=== PATIENT | female | born 1950 | race Two or more races ===

== ENCOUNTER → 2024-02-27 | Outpatient (CLI) | payer MEDICARE, MEDICAID, SELFPAY ==
--- NOTE | 2024-02-27 08:30 | XR_ITS ---
Examination: Abdomen sonogram, complete Date and time of exam: February 27, 2024 0844 hours INDICATIONS: Cirrhosis diagnosis 20 years ago. Technique: Multiple real-time grayscale transabdominal sonographic images of the abdomen have been obtained. Findings: Multiple gallstones Normal gallbladder wall Normal common bile duct 0.4 cm Pancreatic head 2.7 cm Aorta not enlarged Liver 16.5 cm nodular contour fatty infiltration no focal liver lesions Normal hepatopedal portal venous flow Patent IVC Right kidney 11.4 x 5.1 x 5.9 cm cortex 1.1 cm Left kidney 10.8 x 5.5 x 4.6 cm renal cortex 1.7 cm Moderate renal parenchymal scar formation No hydronephrosis 14.5 cm splenic dimension with portosystemic collateral vessels IMPRESSION: Cholelithiasis Hepatosplenomegaly Cirrhosis, no focal liver lesions
== END | disposition home or self-care (01) ==
LOC: CDIM 08:19
PROVIDERS: Referring Provider Family Medicine; Visit Provider Family Medicine
DX: K80.20 Calculus of gallbladder without cholecystitis without obstruction (principal); R16.2 Hepatomegaly with splenomegaly, not elsewhere classified
CPT/HCPCS: 76700

== ENCOUNTER → 2024-03-28 | Outpatient (CLI) | payer MEDICARE, MEDICAID, SELFPAY ==
--- NOTE | 2024-03-28 07:00 | XR_ITS ---
Exam: MRI knee without contrast, right complete Date and time of exam: April 07, 2024 at 0706 hrs. Indications: Patient fell November 2023 with injury to the knee followed by anterior knee pain weakness instability Technique: Multiple axial, coronal, and sagittal sections on the knee have been obtained. T2-Weighted sagittal, fat-suppressed images, TR 3,500, TE 62, T2 weighted coronal fat-saturated images, TR 3,500, TE 62 Proton density sagittal sections, TR 1800, TE 31. T-1 weighted coronal images, TR 524, TE 13.0 Findings: Medial meniscus anterior horn intact. Medial meniscus, body oblique linear tear communicating inferior articular surface. Posterior horn medial meniscus horizontal linear tear communicating inferior articular surface near the inner margin. Lateral meniscus anterior horn replaced by isointense signal Lateral meniscus, body is replaced by isointense signal Posterior horn lateral meniscus is replaced by isointense signal Anterior cruciate ligament moderate sprain Posterior cruciate ligament appears intact. Knee effusion is moderate. Suprapatellar joint like Quadriceps and patellar tendons appear intact. There is no evidence of tendinosis. Inflammatory change or fracture of Hoffa's fat pad is not seen. Medial patellar facet demonstrates moderate thinning. Lateral patellar facet cartilage demonstrates moderate thinning. Trochlear cartilage demonstrates moderate thinning. Marrow signal abnormal, 26 mm focus of osteochondritis dissecans posterior lateral femoral condyle. Medial collateral ligament appears intact. No meniscocapsular separation is seen. Illiotibial band and fibular collateral ligament are intact. Biceps femoris tendons appear intact. Medial femoral condylar articular cartilage demonstrates moderate thinning. Lateral femoral condylar articular cartilage demonstratesmoderate thinning. Tibial plateau cartilage demonstrates moderate thinning. 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
== END | disposition home or self-care (01) ==
PROVIDERS: PCP Physician Assistant; Referring Provider Physician Assistant; Visit Provider Physician Assistant
DX: S83.206A Unspecified tear of unspecified meniscus, current injury, right knee, initial encounter (principal); S83.511A Sprain of anterior cruciate ligament of right knee, initial encounter; X58.XXXA Exposure to other specified factors, initial encounter; M93.261 Osteochondritis dissecans, right knee
CPT/HCPCS: 73721

== ENCOUNTER → 2024-04-28 | Outpatient (CLI) | payer MEDICARE, MEDICAID, SELFPAY ==
--- NOTE | 2024-04-28 | XR_ITS ---
Examination: Bilateral knees 2 views Right lateral knee left lateral knee 2 views Bilateral axial knees single view Technique: Bilateral AP knees standing single view, bilateral PA knees standing single view flexion Standing right lateral knee left lateral knee 2 views Bilateral axial knees single view total 5 views Exam date and time: April 28, 2024 1302 hrs. Indications: Right knee pain after falling November 2023 Findings: Moderate to advanced narrowing lateral joint space right knee Mild osteoarthritis patellofemoral and medial joint spaces Moderate narrowing medial joint space left knee Mild osteoarthritis patellofemoral joint and lateral joint space Impression: Moderate to advanced narrowing lateral joint space right knee Moderate narrowing medial joint space left knee
== END | disposition home or self-care (01) ==
LOC: CDIM 12:04
PROVIDERS: Referring Provider Orthopaedic Surgery Adult Reconstructive Orthopaedic Surgery; Visit Provider Orthopaedic Surgery Adult Reconstructive Orthopaedic Surgery
DX: M25.862 Other specified joint disorders, left knee (principal); M25.861 Other specified joint disorders, right knee
CPT/HCPCS: 73564

== ENCOUNTER 2024-05-27 08:17 | Outpatient (AMB) | payer MEDICARE, MEDICAID, SELFPAY ==
--- NOTE | 2024-05-27 08:26 | ORTHONT_ITS ---
Vital signs 05/27/24 08:27 Height 1.63 m Height Method Stated Weight 81.873 kg Weight Measurement Method Standing Scale BMI 30.9 BP 108/68 Blood Pressure Source Automatic Cuff Blood Pressure Location Right Upper Arm Position Sitting Respiration 18 Pulse 70 Pulse Source Monitor Temp 97.6 F Temp Source Temporal Artery Scan Pulse Oximetry (%) 98 Oxygen Delivery Method Room Air Med/Allergies Allergies & Medications Allergies No Known Allergies Allergy (Unknown, Uncoded 05/27/24 08:27) Medication Reconciliation Propranolol Hcl * (INDERAL *) 10 mg PO TID #0 tabs 08/24/16 [History Confirmed 05/27/24] azathioprine 50 mg tablet (Imuran) 50 mg PO QDAY #0 tabs 08/24/16 [History Confirmed 05/27/24] multivitamin,[id number] (Complete Multivitamin tablet) 1 tab PO #0 tabs 08/24/16 [History Confirmed 05/27/24] spironolactone 25 mg tablet (Aldactone) 25 mg PO TID #0 tabs 08/24/16 [History Confirmed 05/27/24] lactulose 10 gram/15 mL oral solution 10 g PO QDAY 05/27/24 [History Confirmed 05/27/24] meloxicam 7.5 mg tablet 7.5 mg PO QDAY #45 tabs 05/27/24 [Rx] Exam Exam Breathing is nonlabored. Patient has a normal mood and affect. Bilateral extremities were evaluated and demonstrates sensation intact to light touch. Palpable pedal pulses are present. No significant edema is present. Bilateral hips were examined. The patient has no pain with log roll of the hips. Internal rotation to 30 degrees and external rotation to 30 degrees is painless. Negative FADIR. Left knee was examined today. The left knee is in reasonable alignment. Range of motion from 0-120 degrees. Knee is stable to varus and valgus as well as AP translation with <5mm. Patient has a negative McMurrays. There is no pain with patellofemoral compression and no crepitus noted. The knee is nontender to palpation. The right knee was also examined. The right knee is in valgus alignment. Range of motion from 0-115 degrees. Knee is stable to varus and valgus as well as AP translation with <5mm. Patient has a negative McMurrays. There is no pain with patellofemoral compression and no crepitus noted. The knee is tender to palpation Medially and laterally Bilateral knee x-rays demonstrate joint space narrowing laterally of advanced severity. Left knee x-rays demonstrate mild arthritis Assessment and Plan Problem List (1) Arthritis of knee, right: Status: Acute Plan: Patient is a pleasant 74-year-old female with moderate arthritis of the right knee with 6 months of right knee pain. He has not tried conservative treatment. We discussed the natural history of arthritis in great detail today. We will start with an anti-inflammatory Advanced Care Planning Discussion Advance care planning discussed with:: patient and child Office Procedures GNS Level of Care Nursing/Assessment Patient Status: Established Patient Nursing Assessment/Reassesment: Medication Reconciliation, Update PMH in EMR and Vital Signs Coordination of Care: Complex Care and Chronic Disease 1-5, Education Complex Pt/Fam, Consent,records obtained, informed consent, Results/Orders obtained and Staff clarify orders Special Needs: Language special needs Established Patient Charge Established Patient Point Assignment: 95 Established Patient Point Charge: EP Level 3 (80-115) MA Intake Visit Data Collection New Patient or Established: Established Patient (seen at [facility] within 3 years) Reason for Visit:: RIGHT KNEE PAIN Seen by Clinical Staff ONLY (RN/MA): No Verbal consent obtained for Telemed visit?: No Lawn Caretaker Required: Yes PCP or OBGYN visit in last 3 months: Yes Hx Now: No Do You Feel Safe at Home: Yes Authorities Contacted: N/A Questionairres Past Medical History Past Medical History Have you ever been diagnosed with any of the following: Respiratory Problems Smoking: No Smoking Cessation Counseling: No Smoking Exposure: No Tobacco Use: No Clubbing: No Stomache/Intestinal Problems Cirrhosis: Yes Subjective Visit Visit for: new patient and knee Immunization / Flu Flu Vaccine in the Last 12 Months: No Flu Vaccine Exclusion Criteria: No Exclusion Criteria History of Present Illness Chief complaint: right knee pain Date of injury / onset of symptoms: LAST NOVEMBER Patient is a pleasant 74-year-old female with right knee pain that has been ongoing for 4 months. The pain is starting to recur but is not affecting her quality life or happiness. She is able to function pretty well. She has not had any injections or taking anti-inflammatories. She has tried physical therapy in the past Personal History Occupation: RETIRED Red flag PMH: BMI and none BMI Counceling provided: Yes Pain Pain level (0-10): 1 Pain duration: WITH ACTIVITY Pain location: anterior Pain quality: other (specify) (BOTHERSOME) Pain timing: increases with activity Associated signs & symptoms: numbness and weakness Ambulatory data Ambulatory device: none Treatments Improvement with previous injections: No Number of Physical Therapy sessions: 5 Improvement with PT: Yes Improvement with NSAIDS: no Review of Systems Review of Systems: All systems negative unless otherwise noted in HPI.
[2024-05-27 08:27] VITALS: BP 108/68; PULSE 70; RESP 18; TEMP 36.4; O2SAT 98; BMI 30.9
== END 2024-05-27 08:35 | disposition home or self-care (01) ==
LOC: HODSRG 08:17
PROVIDERS: PCP Physician Assistant; Referring Provider Physician Assistant; Supervising Provider Orthopaedic Surgery Adult Reconstructive Orthopaedic Surgery; Visit Provider Orthopaedic Surgery Adult Reconstructive Orthopaedic Surgery
DX: M17.11 Unilateral primary osteoarthritis, right knee (principal); M25.561 Pain in right knee
CPT/HCPCS: 99213; G0463

== ENCOUNTER 2024-07-01 07:57 | Outpatient (AMB) | payer MEDICARE, MEDICAID, SELFPAY ==
[2024-07-01 08:10] VITALS: BP 122/78; PULSE 66; RESP 18; TEMP 36.4; O2SAT 96; BMI 31.4
--- NOTE | 2024-07-01 08:10 | ORTHONT_ITS ---
Vital signs 07/01/24 08:10 Height 1.63 m Height Method Stated Weight 83.603 kg Weight Measurement Method Standing Scale BMI 31.4 BP 122/78 Blood Pressure Source Automatic Cuff Blood Pressure Location Right Upper Arm Position Sitting Respiration 18 Pulse 66 Pulse Source Monitor Temp 97.6 F Temp Source Temporal Artery Scan Pulse Oximetry (%) 96 Oxygen Delivery Method Room Air Med/Allergies Allergies & Medications Allergies No Known Allergies Allergy (Unknown, Uncoded 07/01/24 08:11) Medication Reconciliation Propranolol Hcl * (INDERAL *) 10 mg PO TID #0 tabs 08/24/16 [History Confirmed 07/01/24] azathioprine 50 mg tablet (Imuran) 50 mg PO QDAY #0 tabs 08/24/16 [History Confirmed 07/01/24] multivitamin,[id number] (Complete Multivitamin tablet) 1 tab PO #0 tabs 08/24/16 [History Confirmed 07/01/24] spironolactone 25 mg tablet (Aldactone) 25 mg PO TID #0 tabs 08/24/16 [History Confirmed 07/01/24] lactulose 10 gram/15 mL oral solution 10 g PO QDAY 05/27/24 [History Confirmed 07/01/24] meloxicam 7.5 mg tablet 7.5 mg PO QDAY #45 tabs 05/27/24 [Rx Confirmed 07/01/24] Exam Exam Breathing is nonlabored. Patient has a normal mood and affect. Bilateral extremities were evaluated and demonstrates sensation intact to light touch. Palpable pedal pulses are present. No significant edema is present. Bilateral hips were examined. The patient has no pain with log roll of the hips. Internal rotation to 30 degrees and external rotation to 30 degrees is painless. Negative FADIR. Left knee was examined today. The left knee is in reasonable alignment. Range of motion from 0-120 degrees. Knee is stable to varus and valgus as well as AP translation with <5mm. Patient has a negative McMurrays. There is no pain with patellofemoral compression and no crepitus noted. The knee is nontender to palpation. The right knee was also examined. The right knee is in valgus alignment. Range of motion from 0-115 degrees. Knee is stable to varus and valgus as well as AP translation with <5mm. Patient has a negative McMurrays. There is no pain with patellofemoral compression and no crepitus noted. The knee is tender to palp ation Medially and laterally Bilateral knee x-rays demonstrate joint space narrowing laterally of advanced severity. Assessment and Plan Problem List (1) Arthritis of knee, right: Status: Acute Plan: Patient is a pleasant 74-year-old female with moderate arthritis of the right knee with 6 months of right knee pain. He has not tried conservative treatment. We discussed the natural history of arthritis in great detail today. Recommend knee cortisone injection as patient would like to proceed with conservative treatment at this time. The risks and benefits of the procedure were reviewed with the patient and patient gave verbal consent to continue with the procedure. Procedure: performed by Dr. Staples Using sterile technique the Right knee was thoroughly prepped with alcohol, and approximately 1 cc of Kenalog 40 mg/mL and 4 cc of 1% lidocaine was injected without resistance into the medial tibial femoral joint space. The patient tolerated the procedure. Advanced Care Planning Discussion Advance care planning discussed with:: patient Office Procedures GNS Level of Care Nursing/Assessment Patient Status: Established Patient Nursing Assessment/Reassesment: Medication Reconciliation, Update PMH in EMR and Vital Signs Coordination of Care: Complex Care and Chronic Disease 1-5, Education Complex Pt/Fam, Consent,records obtained, informed consent, Lab and Imaging orders, Results/Orders obtained and Staff clarify orders Special Needs: Language special needs Established Patient Charge Established Patient Point Assignment: 110 Established Patient Point Charge: EP Level 3 (80-115) MA Intake Visit Data Collection New Patient or Established: Established Patient (seen at [facility] within 3 years) Reason for Visit:: F/U KNEE PAIN Seen by Clinical Staff ONLY (RN/MA): No Verbal consent obtained for Telemed visit?: No Assisted Living Executive Director Required: Yes PCP or OBGYN visit in last 3 months: Yes Hx Now: No Do You Feel Safe at Home: Yes Authorities Contacted: N/A Questionairres Past Medical History Past Medical History Have you ever been diagnosed with any of the following: Respiratory Problems Smoking: No Smoking Cessation Counseling: No Smoking Exposure: No Tobacco Use: No Clubbing: No Stomache/Intestinal Problems Cirrhosis: Yes Subjective Visit Visit for: follow up visit and knee Immunization / Flu Flu Vaccine in the Last 12 Months: Yes Flu Vaccine Exclusion Criteria: Already Received History of Present Illness Chief complaint: FOLLOW UP KNEE PAIN Date of injury / onset of symptoms: LAST NOVEMBER Patient is a pleasant 74-year-old female with right knee pain that has been ongoing for 5 months. The pain is starting to recur but is not affecting her quality life or happiness. She is able to function pretty well. She has not had any injections or taking anti-inflammatories. She has tried physical therapy in the past. She has tried NSAIDs and would like to try an injection today Personal History Occupation: RETIRED Red flag PMH: BMI BMI Counceling provided: Yes Pain Pain level (0-10): 5 Pain duration: WITH ACTIVITY Pain location: outside (lateral) and anterior Pain quality: sharp, dull and aching Pain timing: increases with activity and stairs Associated signs & symptoms: numbness Ambulatory data Ambulatory device: none Treatments Improvement with previous injections: No Number of Physical Therapy sessions: 5 Improvement with PT: No Improvement with NSAIDS: yes Review of Systems Review of Systems: All systems negative unless otherwise noted in HPI.
== END 2024-07-01 08:32 | disposition home or self-care (01) ==
LOC: HODSRG 07:57
PROVIDERS: Supervising Provider Orthopaedic Surgery Adult Reconstructive Orthopaedic Surgery; Visit Provider Orthopaedic Surgery Adult Reconstructive Orthopaedic Surgery
DX: M17.11 Unilateral primary osteoarthritis, right knee (principal)
CPT/HCPCS: 20610; 99213; J3301; J3490; G0463

== ENCOUNTER → 2024-08-04 | Outpatient (CLI) | payer MEDICARE, MEDICAID, SELFPAY ==
--- NOTE | 2024-08-04 13:45 | XR_ITS ---
Examination: Diagnostic digital mammography, unilateral, right Computer aided detection 3-D breast Tomosynthesis, unilateral Date and time of exam: August 04, 2024 1325 hours INDICATIONS: Mammogram May 16, 2023 6 mm focal asymmetry retroareolar region right breast Technique: Nonmagnified MLO, CC views of the right breast have been obtained, reconstructed from 3-D Tomosynthesis images. R2 computer aided detection program utilized for evaluation of suspicious masses and/or abnormal calcifications. 3-D Tomosynthesis images obtained. Findings: The breast is heterogeneously dense, which may obscure small masses Stable focal asymmetry retroareolar region right breast No interval suspicious masses Impression: BI-RADS category 2: Benign findings Recommend yearly follow-up mammography
== END | disposition home or self-care (01) ==
LOC: CDIM 13:04
PROVIDERS: Referring Provider Specialist; Visit Provider Specialist
DX: R92.331 Mammographic heterogeneous density, right breast (principal); N64.89 Other specified disorders of breast
CPT/HCPCS: 77061; 77065; G0279

== ENCOUNTER → 2024-08-15 | Outpatient (CLI) | payer MEDICARE, MEDICAID, SELFPAY ==
--- NOTE | 2024-08-15 | XR_ITS ---
Examination: Diagnostic digital mammography, unilateral, left Computer aided detection 3-D breast Tomosynthesis, unilateral Date and time of exam: August 15, 2024 0926 hours INDICATIONS: Mammogram May 15, 2026 6 mm focal asymmetry retroareolar region right breast Technique: Nonmagnified MLO, CC views of the left breast have been obtained, reconstructed from 3-D Tomosynthesis images. R2 computer aided detection program utilized for evaluation of suspicious masses and/or abnormal calcifications. 3-D Tomosynthesis images obtained. Findings: The breast is heterogeneously dense, which may obscure small masses Benign calcifications No suspicious masses Please see the left breast sonogram report today indicating enlarged left axillary lymph node Impression: BI-RADS category 3: Probably benign findings Please see the left breast sonogram report today indicating enlarged left axillary lymph node recommend 3-6 month left breast sonogram follow-up
--- NOTE | 2024-08-15 08:47 | XR_ITS ---
Examination: Breast ultrasound complete, bilateral Date and time of exam: August 15, 2024, 0911 hours INDICATIONS: History mammogram August 04, 2024 retroareolar right breast asymmetry Technique: Real-time grayscale ultrasonographic imaging bilateral breasts, including all 4 quadrants as well as nipple retroareolar and axillary regions. Findings: No cystic or solid mass either breast Enlarged left axillary lymph node with mild distortion of internal architecture IMPRESSION: BI-RADS Category 3: Probably benign findings Recommend 3-6 month left breast sonogram follow-up with specific attention to the left axilla
== END | disposition home or self-care (01) ==
PROVIDERS: PCP Physician Assistant; Referring Provider Specialist; Visit Provider Specialist
DX: R92.333 Mammographic heterogeneous density, bilateral breasts (principal); R59.0 Localized enlarged lymph nodes
CPT/HCPCS: 76641; 77061; 77065; G0279

== ENCOUNTER → 2024-09-25 | Outpatient (CLI) | payer MEDICARE, MEDICAID, SELFPAY ==
--- NOTE | 2024-09-25 08:45 | XR_ITS ---
Examination: Abdomen sonogram, complete Date and time of exam: September 25, 2024 0841 hours INDICATIONS: Diagnosis autoimmune hepatitis. Technique: Multiple real-time grayscale transabdominal sonographic images of the abdomen have been obtained. Findings: Multiple gallstones Gallbladder wall 0.5 cm Common bile duct 0.4 cm Pancreatic head 2.7 cm Aorta not enlarged. Liver 17.5 cm irregular contour no focal liver lesions. Irregular contour Normal hepatopedal portal venous flow Patent IVC Right kidney 10.1 cm left kidney 10.5 cm Moderate right mild left renal pedicle scar formation Renal cortical thinning Spleen 14.8 cm IMPRESSION: Cholelithiasis Thickened gallbladder wall, consider HIDA scan or MRCP follow-up Hepatosplenomegaly, suspect primary hepatocellular disease
== END | disposition home or self-care (01) ==
LOC: CDIM 08:21
PROVIDERS: Referring Provider Internal Medicine Gastroenterology; Visit Provider Internal Medicine Gastroenterology
DX: K80.20 Calculus of gallbladder without cholecystitis without obstruction (principal); R16.2 Hepatomegaly with splenomegaly, not elsewhere classified
CPT/HCPCS: 76700

== ENCOUNTER 2024-10-02 10:03 | Outpatient (AMB) | payer MEDICARE, MEDICAID, SELFPAY ==
--- NOTE | 2024-10-02 10:11 | ORTHONT_ITS ---
Vital signs 10/02/24 10:14 Height 1.63 m Height Method Stated Weight 83.064 kg Weight Measurement Method Standing Scale BMI 31.2 BP 118/79 Blood Pressure Source Automatic Cuff Blood Pressure Location Left Upper Arm Position Sitting Respiration 19 Pulse 71 Pulse Source Monitor Temp 97.8 F Temp Source Temporal Artery Scan Pulse Oximetry (%) 96 Oxygen Delivery Method Room Air Med/Allergies Allergies & Medications Allergies No Known Allergies Allergy (Unknown, Uncoded 10/02/24 10:14) Medication Reconciliation Propranolol Hcl * (INDERAL *) 10 mg PO TID #0 tabs 08/24/16 [History Confirmed 10/02/24] azathioprine 50 mg tablet (Imuran) 50 mg PO QDAY #0 tabs 08/24/16 [History Confirmed 10/02/24] multivitamin,[id number] (Complete Multivitamin tablet) 1 tab PO #0 tabs 08/24/16 [History Confirmed 10/02/24] spironolactone 25 mg tablet (Aldactone) 25 mg PO TID #0 tabs 08/24/16 [History Confirmed 10/02/24] lactulose 10 gram/15 mL oral solution 10 g PO QDAY 05/27/24 [History Confirmed 10/02/24] meloxicam 7.5 mg tablet 7.5 mg PO QDAY #45 tabs 05/27/24 [Rx Confirmed 10/02/24] Exam Exam Breathing is nonlabored. Patient has a normal mood and affect. Bilateral extremities were evaluated and demonstrates sensation intact to light touch. Palpable pedal pulses are present. No significant edema is present. Bilateral hips were examined. The patient has no pain with log roll of the hips. Internal rotation to 30 degrees and external rotation to 30 degrees is painless. Negative FADIR. Left knee was examined today. The left knee is in reasonable alignment. Range of motion from 0-120 degrees. Knee is stable to varus and valgus as well as AP translation with <5mm. Patient has a negative McMurrays. There is no pain with patellofemoral compression and no crepitus noted. The knee is nontender to palpation. The right knee was also examined. The right knee is in valgus alignment. Range of motion from 0-115 degrees. Knee is stable to varus and valgus as well as AP translation with <5mm. Patient has a negative McMurrays. There is no pain with patellofemoral compression and no crepitus noted. The knee is tender to palpa tion Medially and laterally Bilateral knee x-rays demonstrate joint space narrowing laterally of advanced severity. Assessment and Plan Problem List (1) Arthritis of knee, right: Status: Acute Plan: Patient is a pleasant 74-year-old female with moderate arthritis of the right knee with 6 months of right knee pain. He has not tried conservative treatment. We discussed the natural history of arthritis in great detail today. She had great relief with the last injection and is about to go on a trip and like another Recommend knee cortisone injection as patient would like to proceed with conservative treatment at this time. The risks and benefits of the procedure were reviewed with the patient and patient gave verbal consent to continue with the procedure. Procedure: performed by Dr. Staples Using sterile technique the Right knee was thoroughly prepped with alcohol, and approximately 1 cc of Kenalog 40 mg/mL and 4 cc of 1% lidocaine was injected without resistance into the medial tibial femoral joint space. The patient tolerated the procedure. Advanced Care Planning Discussion Advance care planning discussed with:: patient Office Procedures GNS Level of Care Nursing/Assessment Patient Status: Established Patient Nursing Assessment/Reassesment: Medication Reconciliation, Update PMH in EMR and Vital Signs Coordination of Care: Complex Care and Chronic Disease 1-5, Education Complex Pt/Fam, Consent,records obtained, informed consent, Results/Orders obtained and Staff clarify orders Special Needs: Language special needs Established Patient Charge Established Patient Point Assignment: 95 Established Patient Point Charge: EP Level 3 (80-115) Surgical Proc/IM SQ injection Major Surgical Procedure: Yes (RIGHT KNEE INJECTION) Medication Given Medication Given Medication Given: Yes Documented Dose Given: 1 Route: Infiitration Medication Given Medication Given Medication Given: Yes Documented Dose Given: 4 Route: Infiitration Office Meds methylprednisolone acetate 80 mg/mL suspension for injection Performing Provider: Castro Staples MD Performing Location: [facility] Administered by: Castro Staples MD on 10/02/24 11:02 Dose Route Admin Location Dispensed Lot Number Expiration Date [employer]IC Tr[employer] Bullet Section Supervisor 80 mg intra-articular 1 mL [id number] 07/18/26 [address]-9 [facility] (PF) 2 mg/mL (0.2 %) injection solution Performing Provider: Castro Staples MD Performing Location: [facility] Administered by: Castro Staples MD on 10/02/24 11:02 Dose Route Admin Location Dispensed Lot Number Expiration Date [facility] Tracer Bullet Section Supervisor 20 mL Infiltration 20 mL [id number] 12/18/25 67929-900-21 KASSIDY BARRERA ORELLANA MA Intake Visit Data Collection New Patient or Established: Established Patient (seen at 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 PCP or OBGYN visit in last 3 months: Yes Hx Now: No Do You Feel Safe at Home: Yes Authorities Contacted: N/A Questionairres Past Medical History Past Medical History Have you ever been diagnosed with any of the following: Respiratory Problems Smoking: No Smoking Cessation Counseling: No Smoking Exposure: No Tobacco Use: No Clubbing: No Stomache/Intestinal Problems Cirrhosis: Yes Subjective Visit Visit for: follow up visit and knee Immunization / Flu Flu Vaccine in the Last 12 Months: Yes Flu Vaccine Exclusion Criteria: Already Received History of Present Illness Chief complaint: FOLLOW UP KNEE PAIN Date of injury / onset of symptoms: LAST NOVEMBER Patient is a pleasant 74-year-old female with right knee pain that has been ongoing for 5 months. The pain is starting to recur but is not affecting her quality life or happiness. She is able to function pretty well. She has not had any injections or taking anti-inflammatories. She has tried physical therapy in the past. She has tried NSAIDs and would like to try an injection today Personal History Occupation: RETIRED Red flag PMH: BMI BMI Counceling provided: Yes Pain Pain level (0-10): 5 Pain duration: WITH ACTIVITY Pain location: outside (lateral) and anterior Pain quality: sharp, dull and aching Pain timing: increases with activity and stairs Associated signs & symptoms: numbness Ambulatory data Ambulatory device: none Treatments Improvement with previous injections: No Number of Physical Therapy sessions: 5 Improvement with PT: No Improvement with NSAIDS: yes Review of Systems Review of Systems: All systems negative unless otherwise noted in HPI.
[2024-10-02 10:14] VITALS: BP 118/79; PULSE 71; RESP 19; TEMP 36.6; O2SAT 96; BMI 31.2
== END 2024-10-02 10:43 | disposition home or self-care (01) ==
LOC: HODSRG 10:03
PROVIDERS: Supervising Provider Orthopaedic Surgery Adult Reconstructive Orthopaedic Surgery; Visit Provider Orthopaedic Surgery Adult Reconstructive Orthopaedic Surgery
DX: M17.11 Unilateral primary osteoarthritis, right knee (principal); M25.561 Pain in right knee; K74.60 Unspecified cirrhosis of liver
CPT/HCPCS: 20610; 99213; J1010; J2795; G0463

== ENCOUNTER 2025-02-05 07:55 | Outpatient (AMB) | payer MEDICARE, MEDICAID, SELFPAY ==
--- NOTE | 2025-02-05 08:01 | ORTHONT_ITS ---
Vital signs 02/05/25 08:12 Height 1.6 m Height Method Measured Weight 84.397 kg Weight Measurement Method Standing Scale BMI 32.9 BP 118/84 Blood Pressure Source Automatic Cuff Blood Pressure Location Left Upper Arm Position Sitting Respiration 18 Pulse 65 Pulse Source Monitor Temp 97.5 F Temp Source Temporal Artery Scan Pulse Oximetry (%) 96 Oxygen Delivery Method Room Air Med/Allergies Allergies & Medications Allergies No Known Allergies Allergy (Unknown, Uncoded 02/05/25 08:13) Medication Reconciliation Propranolol Hcl * (INDERAL *) 10 mg PO TID #0 tabs 08/24/16 [History Confirmed 02/05/25] azathioprine 50 mg tablet (Imuran) 50 mg PO QDAY #0 tabs 08/24/16 [History Confirmed 02/05/25] multivitamin,[id number]-[id number]-[id number] (Complete Multivitamin tablet) 1 tab PO #0 tabs 08/24/16 [History Confirmed 02/05/25] spironolactone 25 mg tablet (Aldactone) 25 mg PO TID #0 tabs 08/24/16 [History Confirmed 02/05/25] lactulose 10 gram/15 mL oral solution 10 g PO QDAY 05/27/24 [History Confirmed 02/05/25] meloxicam 7.5 mg tablet 7.5 mg PO QDAY #45 tabs 05/27/24 [Rx Confirmed 02/05/25] Exam Exam Breathing is nonlabored. Patient has a normal mood and affect. Bilateral extremities were evaluated and demonstrates sensation intact to light touch. Palpable pedal pulses are present. No significant edema is present. Bilateral hips were examined. The patient has no pain with log roll of the hips. Internal rotation to 30 degrees and external rotation to 30 degrees is painless. Negative FADIR. Left knee was examined today. The left knee is in reasonable alignment. Range of motion from 0-120 degrees. Knee is stable to varus and valgus as well as AP translation with <5mm. Patient has a negative McMurrays. There is no pain with patellofemoral compression and no crepitus noted. The knee is nontender to palpation. The right knee was also examined. The right knee is in valgus alignment. Range of motion from 0-115 degrees. Knee is stable to varus and valgus as well as AP translation with <5mm. Patient has a negative McMurrays. There is no pain with patellofemoral compression and no crepitus noted. The knee is tender to palp ation Medially and laterally Bilateral knee x-rays demonstrate joint space narrowing laterally of advanced severity. Assessment and Plan Problem List (1) Arthritis of knee, right: Status: Acute Plan: Patient is a pleasant 74-year-old female with moderate arthritis of the right knee with 6 months of right knee pain. He has not tried conservative treatment. We discussed the natural history of arthritis in great detail today. She had great relief with the last injection and is about to go on a trip and like another Recommend knee cortisone injection as patient would like to proceed with conservative treatment at this time. The risks and benefits of the procedure were reviewed with the patient and patient gave verbal consent to continue with the procedure. Procedure: performed by Dr. Staples Using sterile technique the Right knee was thoroughly prepped with alcohol, and approximately 1 cc of Kenalog 40 mg/mL and 4 cc of 1% lidocaine was injected without resistance into the medial tibial femoral joint space. The patient ruth ated the procedure. Advanced Care Planning Discussion Advance care planning discussed with:: patient Office Procedures GNS Level of Care Nursing/Assessment Patient Status: Established Patient Nursing Assessment/Reassesment: Medication Reconciliation, Update PMH in EMR and Vital Signs Coordination of Care: Complex Care and Chronic Disease 1-5, Education Complex Pt/Fam, Consent,records obtained, informed consent, Results/Orders obtained and Staff clarify orders Established Patient Charge Established Patient Point Assignment: 95 Established Patient Point Charge: EP Level 3 (80-115) Surgical Proc/IM SQ injection Minor Surgical Procedure: Yes (KNEE INJECTION ) Medication Given Medication Given Medication Given: Yes Documented Dose Given: 1 Route: Infiitration Medication Given Medication Given Medication Given: Yes Documented Dose Given: 4 Route: Infiitration Office Meds methylprednisolone acetate 80 mg/mL suspension for injection Performing Provider: Castro Staples MD Performing Location: [facility] Administered by: Castro Staples MD on 02/05/25 08:30 Dose Route Admin Location Dispensed Lot Number Expiration Date Pack age [facility] [address] 80 mg intra-articular 1 mL [id number] 10/18/26 [address]-2 [id number] [employer] ropivacaine (PF) 2 mg/mL (0.2 %) injection solution Performing Provider: Castro Staples MD Performing Location: [facility] Administered by: Castro Staples MD on 02/05/25 08:30 Dose Route Admin Location Dispensed Lot Number Expiration Date Pack age [facility] [address] 20 mL Infiltration 20 mL [id number] 07/18/26 3929-1093-57 [id number] AALIYAH KIRBY MA Intake Visit Data Collection New Patient or Established: Established Patient (seen at [facility] within 3 years) Reason for Visit:: RT KNEE PAIN Seen by Clinical Staff ONLY (RN/MA): No Verbal consent obtained for Telemed visit?: No Web Development Manager Required: Yes PCP or OBGYN visit in last 3 months: Yes Hx Now: No Do You Feel Safe at Home: Yes Authorities Contacted: N/A Questionairres Past Medical History Past Medical History Have you ever been diagnosed with any of the following: Respiratory Problems Smoking: No Smoking Cessation Counseling: No Smoking Exposure: No Tobacco Use: No Clubbing: No Stomache/Intestinal Problems Cirrhosis: Yes Subjective Visit Visit for: follow up visit and knee Immunization / Flu Flu Vaccine in the Last 12 Months: Yes Flu Vaccine Exclusion Criteria: Already Received History of Present Illness Chief complaint: RIGHT KNEE PAIN Date of injury / onset of symptoms: LAST NOVEMBER Patient is a pleasant 74-year-old female with right knee pain that has been ongoing for 5 months. The pain is starting to recur but is not affecting her quality life or happiness. She is able to function pretty well. She has not had any injections or taking anti-inflammatories. She has tried physical therapy in the past. She has tried NSAIDs and would like to try an injection today Personal History Occupation: RETIRED Red flag PMH: BMI BMI Counceling provided: Yes Pain Pain level (0-10): 7 Pain duration: WITH ACTIVITY Pain location: outside (lateral) and anterior Pain quality: sharp, dull and aching Pain timing: increases with activity and stairs Associated signs & symptoms: numbness Ambulatory data Ambulatory device: none Treatments Number of previous injections: 1 Improvement with previous injections: Yes Number of Physical Therapy sessions: 5 Improvement with PT: No Improvement with NSAIDS: yes Review of Systems Review of Systems: All systems negative unless otherwise noted in HPI.
[2025-02-05 08:12] VITALS: BP 118/84; PULSE 65; RESP 18; TEMP 36.4; O2SAT 96; BMI 32.9
== END 2025-02-05 08:27 | disposition home or self-care (01) ==
LOC: HODSRG 07:55
PROVIDERS: Supervising Provider Orthopaedic Surgery Adult Reconstructive Orthopaedic Surgery; Visit Provider Orthopaedic Surgery Adult Reconstructive Orthopaedic Surgery
DX: M17.11 Unilateral primary osteoarthritis, right knee (principal)
CPT/HCPCS: 20610; 99213; J1010; J2795; G0463